=== PATIENT | female | born 1995 | race American Indian/Alaskan Native ===

== ENCOUNTER 2018-01-03 16:14 | Emergency (ER) | payer SELFPAY ==
--- NOTE | 2018-01-03 17:27 | Emergency Department Report ---
ED Seizure HPI - General Chief Complaint: Seizure Stated Complaint: SEIZURE Time Seen by Provider: 01/03/18 17:15 Source: patient, EMS Mode of arrival: Stretcher Limitations: No Limitations - History of Present Illness Initial Comments: Patient is 22 years old female with no significant positive medical history. Patient brought to the ER via EMS after she had one episode or possible seizure. Patient boyfriend he is witness the seizure. He stated that she was sleeping and then all of a sudden his thoughts. Nausea secondary look that she was shaking all over eyes rolling back and then she went into Deep asleep with snoring. EMS arrived patient is already alert and oriented 3 so patient did not receive any medication. Patient mother at bedside and she stated that she did not have any past medical history. Patient mother also stated that there is no family history of seizure. Denied any neck pain or fever recently. Patient is complaining of headache. MD Complaint: possible seizure, loss of consciousness, shaking -: Sudden, This afternoon Description of Episode: loss of consciousness, tonic-clonic movement, post- event confusion Witnessed:: Yes Trauma: No Seizure History: none Place: home Possible Precipitating Event: none Associated Symptoms: denies other symptoms Treatments Prior to Arrival: none - Related Data Previous Rx's Medication Instructions Recorded Last Taken Type HYDROcodone/APAP 5-325 [[place] 1 each PO Q6HR PRN #7 tablet 01/05/16 Unknown Rx 5/325] Sulfamethoxazole/Trimethoprim 1 each PO BID #6 tablet 01/05/16 Unknown Rx [Bactrim DS TAB] Allergies Allergy/AdvReac Type Severity Reaction Status Date / Time No Known Allergies Allergy Unverified 01/05/16 18:42 ED Review of Systems ROS: Stated complaint: SEIZURE Other details as noted in HPI Comment: All other systems reviewed and negative Constitutional: denies: chills, fever Respiratory: denies: cough, orthopnea, shortness of breath, SOB with exertion, SOB at rest, wheezing Cardiovascular: denies: chest pain, palpitations, dyspnea on exertion Gastrointestinal: denies: abdominal pain, nausea, vomiting, diarrhea, constipation, hematemesis, melena, hematochezia Genitourinary: abnormal menses. denies: urgency, dysuria, frequency, hematuria , discharge, dyspareunia Musculoskeletal: denies: back pain Neurological: headache. denies: weakness, numbness, paresthesias, confusion, abnormal gait, vertigo ED Past Medical Hx - Social History Smoking Status: Never Smoker Substance Use Type: None - Medications Home Medications: Home Medications Medication Instructions Recorded Confirmed Last Taken Type HYDROcodone/APAP 5-325 [[place] 1 each PO Q6HR PRN #7 tablet 01/05/16 Unknown Rx 5/325] Sulfamethoxazole/Trimethoprim 1 each PO BID #6 tablet 01/05/16 Unknown Rx [Bactrim DS TAB] ED Physical Exam - General Limitations: No Limitations General appearance: alert, in no apparent distress - Head Head exam: Present: atraumatic, normocephalic, normal inspection - Eye Eye exam: Present: normal appearance, PERRL - ENT ENT exam: Present: normal exam, normal orophraynx, mucous membranes moist, TM's normal bilaterally, normal external ear exam - Neck Neck exam: Present: normal inspection, full ROM. Absent: tenderness, meningismus, lymphadenopathy, thyromegaly - Respiratory Respiratory exam: Present: normal lung sounds bilaterally. Absent: respiratory distress, wheezes, rales, rhonchi, stridor, chest wall tenderness, accessory muscle use, decreased breath sounds, prolonged expiratory - Cardiovascular Cardiovascular Exam: Present: regular rate, normal rhythm, normal heart sounds - GI/Abdominal GI/Abdominal exam: Present: soft, normal bowel sounds. Absent: distended, tenderness, guarding, rebound, rigid, organomegaly, mass, bruit, pulsatile mass - Extremities Exam Extremities exam: Present: normal inspection, full ROM, normal capillary refill. Absent: tenderness, pedal edema, joint swelling, calf tenderness - Back Exam Back exam: Present: normal inspection, full ROM. Absent: tenderness, CVA tenderness (R), CVA tenderness (L), muscle spasm, paraspinal tenderness, vertebral tenderness - Neurological Exam Neurological exam: Present: alert, oriented X3, CN II-XII intact, normal gait, reflexes normal - Skin Skin exam: Present: warm, intact, normal color ED Course Vital Signs 01/03/18 01/03/18 01/03/18 17:01 17:50 19:20 Temperature 98.2 F 98.4 F Pulse Rate 105 H 95 H Respiratory 18 18 22 Rate Blood Pressure 137/81 Blood Pressure 124/61 [Left] O2 Sat by Pulse 96 99 97 Oximetry ED Medical Decision Making - Lab Data Result diagrams: 01/03/18 17:26 01/03/18 17:26 - EKG Data -: EKG Interpreted by Me EKG shows normal: sinus rhythm Rate: normal - EKG Data Interpretation: no acute changes - Radiology Data Radiology results: report reviewed - Medical Decision Making Ms Brown is 22 years old female with no significant positive medical history. Patient brought to the ER via EMS after she had one episode or possible seizure. Patient boyfriend he is witness the seizure. He stated that she was sleeping and then all of a sudden she started shaking all over eyes rolling back and then she went into Deep asleep with snoring. EMS arrived patient is already alert and oriented 3 so patient did not receive any medication. Patient mother at bedside and she stated that she did not have any past medical history. Patient mother also stated that there is no family history of seizure. Denied any neck pain or fever recently. Patient is complaining of headache. Patient observed in the ER no seizure activity. Patient stated that her symptoms is completely resolved. CT brain is negative completely labs all came back negative was no acute finding, drug screen is negative. I believe this patient most likely had one episode of seizure. I advised patient to follow-up with several primary care physician for referral to urologist. I also advised patient not to drive. Critical care attestation.: If time is entered above; I have spent that time in minutes in the direct care of this critically ill patient, excluding procedure time. ED Disposition Clinical Impression: Seizure Disposition: DC-01 TO HOME OR SELFCARE Is pt being admited?: No Condition: Stable Instructions: New-Onset Seizure in Adults (ED) Additional Instructions: Please don't drive until you see a neurologist. Referrals: PRIMARY CARE, [Primary Care Provider] - 3-5 Days
[2018-01-03 17:54] LABS: Hematocrit 37.6 % (30.3-42.9); Hemoglobin 12.6 gm/dl (10.1-14.3); Mean Corpuscular HGB Conc 34 % (30-34); Mean Corpuscular Hemoglobin 29 pg (28-32); Mean Corpuscular Volume 86 fl (79-97); Platelet Count 466 K/mm3 (140-440); Red Blood Count 4.37 M/mm3 (3.65-5.03); Red Cell Distribution Width 12.9 % (13.2-15.2)
[2018-01-03 18:05] LABS: BUN/Creatinine Ratio 15; Blood Urea Nitrogen 9 mg/dL (7-17); Calcium 9.1 mg/dL (8.4-10.2); Hemolysis Index 6
[2018-01-03 18:24] LABS: Amorphous Crystals,Urine Few; Bacteria,Urine 1+ /HPF (Negative); Bilirubin,Urine NEG (Negative); Blood,Urine NEG (Negative); Color,Urine Yellow (Yellow); HCG Qualitative,Urine Negative (Negative); Mucus,Urine FEW /HPF; Urobilinogen,Urine < 2.0 mg/dL (<2.0)
[2018-01-03 18:37] LABS: Amphetamine Screen,Urine PRESUMPTIVE NEGATIVE; Benzodiazepines Screen,Urine PRESUMPTIVE NEGATIVE; Cannabinoid Screen,Urine PRESUMPTIVE NEGATIVE; Cocaine Screen,Urine PRESUMPTIVE NEGATIVE; Methadone Screen,Urine PRESUMPTIVE NEGATIVE; Opiate Screen,Urine PRESUMPTIVE NEGATIVE
--- NOTE | 2018-01-03 19:02 | Cat Scan Report ---
FINAL REPORT EXAM: CT HEAD/BRAIN WO CON HISTORY: new onset seizure with headache TECHNIQUE: Noncontrast CT axial images of the brain. PRIORS: None. FINDINGS: No parenchymal mass, mass effect, hemorrhage, midline shift or hydrocephalus. No evidence of acute cortical infarct. No abnormal, extra-axial fluid or air collection. Osseous calvarium grossly intact. IMPRESSION: 1. No acute intracranial findings.
[2018-01-03 19:17] LABS: Alanine Aminotransferase 20 units/L (7-56); Albumin 4.2 g/dL (3.9-5)
[2018-01-03 19:25] LABS: Bilirubin,Direct < 0.2 mg/dL (0-0.2)
[2018-01-03 19:47] VITALS: BP 124/61
== END 2018-01-03 20:44 | disposition home or self-care (01) ==
LOC: ED 16:14
DX: R56.9 Unspecified convulsions (principal)
CPT/HCPCS: 70450; 80048; 80074; 80307; 81001; 81025; 82962; 85027; 93005; 93010